=== PATIENT | male | born 2000 | race Caucasian/White ===

== ENCOUNTER 2023-01-17 11:42 | Emergency (ER) | payer MEDICAID, OTHER ==
[2023-01-17 12:36] LABS: ANION GAP 13.5 mmol/L (5-15)
[2023-01-17 12:37] LABS: CORONAVIRUS COVID-19 NAA NEGATIVE (NEGATIVE)
== END 2023-01-17 13:05 | disposition home or self-care (01) ==
LOC: VM.ED 11:42
DX: R07.89 Other chest pain (principal); R00.0 Tachycardia, unspecified; Z20.822 Contact with and (suspected) exposure to COVID-19
CPT/HCPCS: 0240U; 36415; 71046; 80053; 81001; 82150; 82550; 83605; 83615; 83690; 84145; 84484; 85025; 86140; 87040; 93005; 99285; 93010; 99284